=== PATIENT | male | born 1950 | race Caucasian/White ===

== ENCOUNTER 2016-10-20 17:11 | Inpatient (IN) | payer BC, OTHER ==
--- NOTE | ~2016-10-20 | DS ---
Discharge Summary [facility] [address] [facility] [place]. [address] NAME: MALIHA MENA : [birth year] STATUS : DIS IN PAT#: [id number] AGE: 66 ADM/REG DATE : 10/20/16 MR#: [id number] REPORT SERV DATE: 11/08/16 DICTATED BY: ROB RIVERA DATE: 11/07/16 REPORT STATUS : Draft TRANSCRIBED BY: SAIMA DATE: 11/07/16 Data Collection from hospitalization DISCHARGE DIAGNOSES: 1. Inferior ST-elevation myocardial infarction. 2. Chronic obstructive pulmonary disease. 3. Coronary artery disease. 4. Respiratory failure. 5. EtOH withdrawal. 6. Hypertension. 7. Tobacco use. 8. Ventricular fibrillation arrest. CONSULTATIONS: 1. Melinda Garcias MD. 2. Jorden Bhatti M.D. 3. Reva Dc M.D. PROCEDURES PERFORMED: 1. Cardiac catheterization and percutaneous coronary intervention on 10/20/2016. 2. Laceration repair on 10/21/2016. MEDICATIONS: Aspirin 81 mg daily, Lipitor 40 mg at bedtime, Venelex apply to left buttock wound topically twice a day, Plavix 75 mg daily, folic acid 1 mg daily, Lasix 20 mg daily, Humibid DM 600 mg three times a day, Prinivil 5 mg daily, Theragran tablets one tablet daily, Lopressor 12.5 mg twice a day, Protonix 40 mg before breakfast, Florastor one capsule twice a day, thiamine 100 mg daily, Anoro Ellipta one puff via inhaler daily, Tylenol 650 mg every four hours as needed, Mylanta 30 mL every four hours as needed, Habitrol 21 mg topically daily as needed, and nitroglycerin 0.4 mg sublingually every five minutes as needed. CONDITION AT DISCHARGE: Stable. DISPOSITION: The patient was discharged to [facility] on a low-sodium, cardiac diet with activities as instructed. He would follow up with me on 12/04/2016. HOSPITAL COURSE: This is a 66-year-old man who has not been feeling well the week of this admission. He went to a bar to have a couple of beers. After a beer, he began to feel more poorly and develop precordial chest pain. He walked outside of the drinking establishment and had a syncopal event. EMS was called. A field EKG revealed [address]-elevation in the inferior leads with posterior injury pattern noted as well consistent with inferior posterior myocardial infarction. En route, the patient had a ventricular fibrillation arrest requiring CPR for 7 to 10 minutes. He required cardioversion three or four times. He received IV lidocaine. Upon awakening and resuscitation, the patient had purposeful movements. EMS decided to paralyze and sedate him. Secondary to the unstable nature of his condition, he arrived paralyzed and sedated. On arrival, his blood pressure was 80 consistent with cardiogenic shock, declining to 76 systolic. His blood pressure was supported with IV hydration and Levophed. EKG revealed marked ST elevation with posterior Discharge Summary [address] [place]. [address] NAME: MALIHA MENA : [birth year] STATUS : DIS IN PAT#: [id number] AGE: 66 ADM/REG DATE : 10/20/16 MR#: [id number] REPORT SERV DATE: 11/08/16 DICTATED BY: ROB RIVERA DATE: 11/07/16 REPORT STATUS : Draft TRANSCRIBED BY: SAIMA DATE: 11/07/16 reciprocal changes consistent with acute inferior-posterior myocardial infarction. He was admitted to the hospital at this time for further evaluation and treatment. Upon admission, it was felt that he would need to be taken emergently to the cardiac construction laborer for emergent coronary angiography and percutaneous intervention. He would be treated with intensive statin therapy for mixed hyperlipidemia. He was taken to the cardiac construction laborer where he underwent the above-mentioned procedure. He tolerated this well, and there were no complications. He was found to have subtotal thrombotic large dominant mid RCA stenosis and drug-eluting stent was placed. He had mild LAD and circumflex stenosis and iwfs-ca-[id number] LV systolic dysfunction with left ventricular end-diastolic pressure of 22. Left ventricular ejection fraction via left ventriculogram was around 40%. After the left heart catheterization, he was moved to the CCU on Levophed infusion and mechanical ventilation. Of note, he was not responsive. However, he received vecuronium in the construction laborer and a neurologic exam was fairly limited. We have been asked to assist with management of his critical illness as well as management of his mechanical ventilation. SCDs and TEDs were placed for DVT prophylaxis. A PICC line was inserted. The following day, the patient was still sedated and intubated. His lungs were clear. Levophed was being weaned. Plavix and aspirin were continued. We would attempt ventilator weaning later in the day. The patient's family had been located and they were coming to the hospital later that day. The patient had a laceration over the webspace of the fourth and fifth digit of the left hand. He had sustained this from ventricular fibrillation arrest with fall in a parking lot with hand trauma. Laceration repair was performed by Dr. Melinda Garcias. X-rays had shown no obvious fractures. On 10/22/2016, the patient self extubated. Arterial sheath was removed. Lovenox was going to be held for 24 hours. On 10/23/2016, he was seen by Dr. Jorden Bhatti. The patient's wound looked good. He made no new recommendations except to remove the sutures in about 10 days. He was to follow up with Dr. Bhatti as needed. Ativan was being given as needed. Thiamine was continued. He did have withdrawal symptoms. He remained in the ICU. A bedside swallow evaluation was performed. He had overt signs and symptoms of aspiration with thin liquids. He required several swallows to manage his symptoms. Aspiration precautions were in place. He was evaluated by Occupational and Physical Therapy. On 10/24/2016, he was more alert. He denied any pain. His lungs were clear. He was in a sinus rhythm. Mental status was improving. He was changed to oral Protonix. He had no complaints of chest pain. Chest x-ray showed some increased venous congestion. Diuretic was added. He was given a dose of IV Lasix. He was then placed on oral Lasix. On 10/26/2016, he was seen by Dr. Reva Dc. The patient was feeling okay. His dyspnea had improved. He had no chest pain. He was participating with Physical Therapy. We encouraged him to increase his activity with Physical Therapy. Kramer catheter was removed. Over the next couple of days, additional diuresis was provided. We were going to wean O2 as possible. Pulmonary edema was improving. Additional Lasix was given. His dyspnea had improved. He had no edema. Discharge planning was performed. DuoNebs were continued. On 10/30/2016, he denied nausea, vomiting, or chest pain. Antibiotics were discontinued. He said he was feeling good. He was in a sinus rhythm. He had no edema. He was felt to be stable from a cardiovascular standpoint. Discharge instructions were given. Due to his improved and stable condition, he was discharged to [facility] with the above-stated instructions. Discharge Summary [facility] [id number] [place]. [address] NAME: MALIHA MENA : [birth year] STATUS : DIS IN PAT#: [id number] AGE: 66 ADM/REG DATE : 10/20/16 MR#: [id number] REPORT SERV DATE: 11/08/16 DICTATED BY: ROB RIVERA DATE: 11/07/16 REPORT STATUS : Draft TRANSCRIBED BY: SAIMA DATE: 11/07/16 Information collected by: Shanti Senior I submit the above information as my discharge summary. TG/SAIMA Rob Rivera MD / [id number] CC: Patel Stephen Jr., M.D. MD Jorden May M.D. [facility]
--- NOTE | ~2016-10-20 | OP ---
Record Of Operation [facility] [address] [place]. [address] NAME: MALIHA HIGH : [birth year] STATUS : ADM IN [facility]#: [id number] AGE: 67 ADM/REG DATE : 10/20/16 MR#: [id number] REPORT SERV DATE: 10/21/16 DICTATED BY: CR TRAN DATE: 10/21/16 REPORT STATUS : Draft TRANSCRIBED BY: SAIMA DATE: 10/21/16 DATE OF PROCEDURE: 10/21/2016 LACERATION REPAIR REASON: Laceration over the web space of the fourth and fifth digit on the left hand, status post ventricular fibrillation arrest with fall into a parking lot with hand trauma. Under propofol and fentanyl infusion for anesthetic, we performed a three-view radiograph of the left hand, which showed no fracture or foreign body. The hand was prepped and draped in usual sterile fashion. Sterile water and Hibiclens solution was used to perform a jet irrigation of the laceration and four simple interrupted sutures with 5-0 Ethilon were placed with no active bleeding. Subsequently, a sterile dressing was placed overlying the wound, and a small avulsion/skin tear overlying the third and fourth web space was also cleaned with Hibiclens, and a small Steri-Strip dressing was placed. The hand was placed in a wrist immobilizer, and there was satisfactory hemostasis. No significant blood loss during the procedure. Sedation drips were lightened afterwards. The patient did receive 1 gram of Ancef and a tetanus shot prophylactically. PAULO/SAIMA Cr Tran MD / [id number] CC: Patel Stephen Jr., M.D.
--- NOTE | ~2016-10-20 | CN ---
Consultation Report [facility] [address] [place]. [address] NAME: MALIHA HIGH : [birth year] STATUS : ADM IN PAT#: [id number] AGE: 67 ADM/REG DATE : 10/20/16 MR#: [id number] REPORT SERV DATE: 10/20/16 DICTATED BY: CR TRAN DATE: 10/20/16 REPORT STATUS : Draft TRANSCRIBED BY: MODL DATE: 10/20/16 PULMONARY AND CRITICAL CARE MEDICINE CONSULTATION DATE OF CONSULTATION: 10/20/2016 REASON FOR CONSULTATION: Critical care following ST-elevation OK and ventricular fibrillation arrest. HISTORY OF PRESENT ILLNESS: Mr. High is a 67-year-old gentleman who was not feeling well earlier this week, evidently he went to a bar in [facility] to have a couple of beers this evening, and after his first one, began to feel worse with development of precordial chest pain. He walked outside of the bar and apparently dropped to the ground, EMS was called for syncope and EKG in the field revealed [address]-elevation in the inferior leads with posterior injury pattern consistent with an inferior posterior myocardial infarction. He was placed in the ambulance and brought to the hospital, actually developed V-Fib arrest requiring around 10 minutes to CPR and 3 or 4 defibrillations. He was loaded with IV lidocaine. Upon awakening after return of spontaneous circulation, he did have purposeful movements according to the paramedics. He was intubated, sedated, and paralyzed and presented to our emergency department as a STEMI with cardiogenic shock. Initial blood pressure was 76 systolic. He was taken urgently to the labeling strategist by Dr. Stephen as a code STEMI and findings included subtotal thrombotic large dominant mid RCA stenosis and a drug- eluting stent was placed. He also had mild LAD and circumflex stenosis and gdtr-sa-scxyyowe LV systolic dysfunction with LVEDP of 22, LV ejection fraction via LV gram was around 40%. After left heart catheterization, he was moved to the CCU on Levophed infusion at 4 mcg/minute and mechanical ventilation. Of note, he was not responsive, however, had received vecuronium in the labeling strategist, so neurologic exam is fairly limited. We have been asked to assist with management of his critical illness tonight as well as management of his mechanical ventilation. Of note, other than his friends at the bar no other family has been aware of his transfer to our facility, and now the case management is actively working with EMS to attempt to locate his family to let them know of his events today. PAST MEDICAL HISTORY: Evidently he reported to paramedics that he had COPD, however, other history is known as he then developed a cardiac arrest and was unable to provide additional history. SOCIAL HISTORY: He obviously drinks beer of unknown quantities. We are assuming he is a smoker based on his history of COPD, lung hyperinflation on x-ray, and tobacco staining of the fingers. Unknown history of illicit drug use and no further social history is available due to lack of availability of any family or friends. FAMILY HISTORY: Unknown. ALLERGIES: UNKNOWN. Consultation Report [address] [place]. [address] NAME: MALIHA HIGH : [birth year] STATUS : ADM IN [facility]#: [id number] AGE: 67 ADM/REG DATE : 10/20/16 MR#: [id number] REPORT SERV DATE: 10/20/16 DICTATED BY: CR TRAN DATE: 10/20/16 REPORT STATUS : Draft TRANSCRIBED BY: SAIMA DATE: 10/20/16 CURRENT MEDICATIONS: Unknown. REVIEW OF SYSTEMS: Unobtainable due to his intubation and sedation and no family available. PHYSICAL EXAMINATION: VITAL SIGNS: Blood pressure was 82/51, heart rate was 89, respiratory rate was 16 on mechanical ventilation. Afebrile, unable to assess for pain scale. GENERAL: The patient is a male, who is very ill appearing. His marked cyanosis of the neck and ears extending down to the mid chest. HEENT: Head has a couple of abrasions, pupils are not reactive with some clouding of the cornea and conjunctival injection. There is no scleral icterus. Extraocular movements are unable to be assessed. Ears, nose, and mouth are cyanotic. He has an #8 endotracheal tube and an orogastric tube in place draining dark brown material. NECK: Supple and cyanotic. He has symmetric chest rise with hyperinflation and slight barrel chest, diminished breath sounds, and few basilar crackles bilaterally. HEART: S1 and S2 with very sluggish cap refill in distal extremities. His extremities are cool to touch. ABDOMEN: Soft, nontender. He has a midline scar from what appears to be a previous open laparotomy. There are no pulsatile masses in the abdomen. : Kramer catheter is indwelling and draining minimal urine. He has bright red blood projecting from the urethral meatus around the Kramer tubing. EXTREMITIES: Cold to touch, cyanotic. There is xerosis of the skin especially in the lower extremities. His left shoulder has marked crepitus with range of motion and there are multiple small abrasions from his fall. His left hand is markedly discolored and is essentially purple. He has a laceration in the webspace between the ring and pinky finger which is difficult to approximate with irregular borders and some dirt in the wound. There is no active bleeding. There is an abrasion overlying the left knee anteriorly overlying the patella with no active bleeding. LYMPHATIC: Unremarkable. NEUROLOGIC: Essentially unable to be performed secondary to paralysis with vecuronium. PSYCHIATRIC: Unable to assess. DIAGNOSTIC DATA: Diagnostic workup reviewed. CBC is essentially normal with normal hemoglobin, hematocrit, white count and platelet count. His INR is 1.2. Chemistry profile reveals normal GFR at 94 mL/minute, creatinine 0.8, potassium level markedly depressed at 3.3, and glucose of 176. His troponin level was 0.05. An EKG shows STEMI with findings noted above in the HPI. Cardiac cath report was reviewed in the HPI. IMPRESSION: 1. Acute hypoxemic respiratory failure requiring mechanical ventilation. 2. ST-elevation OK with ventricular fibrillation arrest, status post 8 to 10 minutes of ACLS including 3 or 4 defibrillations. Findings of a subtotal thrombotic large dominant mid RCA stenosis, status post PCI per Dr. Stephen with approximately 40% left ventricular ejection fraction and LVEDP of around 25 mmHg. Consultation Report [address] [place]. [address] NAME: MALIHA HIGH : [birth year] STATUS : ADM IN [facility]#: [id number] AGE: 67 ADM/REG DATE : 10/20/16 MR#: [id number] REPORT SERV DATE: 10/20/16 DICTATED BY: CR TRAN DATE: 10/20/16 REPORT STATUS : Draft TRANSCRIBED BY: SAIMA DATE: 10/20/16 3. History of chronic obstructive pulmonary disease. 4. Suspected traumatic injuries to the left shoulder and certainly to the left hand including open laceration, unknown tetanus shot status, without active bleeding. 5. History of alcohol and tobacco abuse. 6. Presumed remote history of ex-lap based on finding of midline abdominal incision. 7. Hypokalemia on arrival. 8. Hyperglycemia in the setting of critical illness. PLAN: Mr. High has already undergone left heart catheterization and is on Levophed for hemodynamic support. A PICC line has been placed, and we are transfusing the arterial sheath for invasive hemodynamic monitoring. We will continue with post PCI protocol per Dr. Stephen, continue long protective mechanical ventilation strategy, and we will obtain radiographs of his hand and shoulder and begin the process of trying to locate his loved ones. We will trend another set of labs for electrolyte replacement needs in light of his hypokalemia, and closely monitor his urine output and renal function. We will need to perform a surface echo tomorrow to reassess left ventricular function, and he will need full neurologic evaluation once paralytics is worn off in light of his prolonged downtime in the field. He has no records available in either [facility] or [facility] on my personal review. We are attempting to get his wallet, cell phone, which had been sent to the safe and security department for investigation and attempts to locate more information about his medical history as well as locate his family. He is a full code at this point. SCDs and BUCK's for DVT prophylaxis. Stress ulcer prophylaxis. PPI while on the ventilator. We will hold off on starting enteral nutrition until tomorrow. Further adjustments will be made as clinically warranted. This case was discussed with Dr. Stephen as well as the bedside nurse in the CCU. Approximately 71 minute critical care time, uninterrupted at the bedside, assessing and stabilizing Mr. High this evening. We appreciate the opportunity for consultation, and I will follow along with you. PAULO/SAIMA Cr Tran MD / [id number] CC: Patel Stephen Jr., M.D.
--- NOTE | ~2016-10-20 | HP ---
History And Physical [facility] [id number] [place]. [address] NAME: MALIHA HIGH : [birth year] STATUS : ADM IN [facility]#: [id number] AGE: 67 ADM/REG DATE : 10/20/16 MR#: [id number] REPORT SERV DATE: 10/20/16 DICTATED BY: ASAEL STEPHEN JR. DATE: 10/20/16 REPORT STATUS : Draft TRANSCRIBED BY: SAIMA DATE: 10/20/16 DATE OF ADMISSION: 10/20/2016 CHIEF COMPLAINT: Chest pain, ST-elevation AR and VFib arrest. HISTORY OF PRESENT ILLNESS: Maliha High is a 67-year-old white male, who told his friends in EMS that he had not been feeling well this week. He went to a bar to have a couple of beers. After a beer, he started to feel more poorly and developed precordial chest pain and then walked outside of drinking establishment and had a syncopal event. EMS was called. Field EKG revealed [address] elevation inferior leads with posterior injury pattern noted as well, consistent with an inferior posterior AR. En route, the patient had a VFib arrest requiring CPR for 7-10 minutes. He required cardioversions 3 or 4 times. He received IV lidocaine. Upon awakening, in resuscitation the patient had purposeful movements. EMS decided to paralyze and sedate him. Secondary to unstable nature of his condition, he arrived paralyzed and sedated. On arrival, his blood pressure was 80 consistent with cardiogenic shock declining to 76 systolic. His blood pressure was supported with IV hydration and Levophed. PAST MEDICAL HISTORY: He gave a diagnosis of COPD. He denied prior vascular events to the EMS. Other history is unknown secondary to his arrival state and no family being available. ALLERGIES: UNKNOWN. CURRENT MEDICATIONS: Unknown. SOCIAL HISTORY: He drinks alcohol of unknown quantities. He is a presumed smoker/ex-smoker with a history of COPD. Other is unknown secondary to clinical status and lack of secondary family. REVIEW OF SYSTEMS: Unobtainable secondary to clinical status. PHYSICAL EXAMINATION: VITAL SIGNS: Blood pressure was 78/48, heart rate 85, respirations 16. GENERAL: Intubated. Older than stated age male, who appeared underweight. HEENT: Anicteric. No scleral injection. No oral lesions. NECK: No JVD. Supple. No bruits. LUNGS: Hyperexpanded, but clear. CARDIAC: Regular rate and rhythm with distant heart sounds. ABDOMEN: Soft, nontender. Normoactive bowel sounds. No hepatosplenomegaly. EXTREMITIES: No clubbing, cyanosis or edema. SKIN: No visible rashes. NEURO/PSY: Normal affect, alert and oriented x3. EKG: EKG revealed marked ST elevation with posterior reciprocal changes consistent with acute inferior posterior AR. History And Physical [address] [address] NAME: MALIHA HIGH : [birth year] STATUS : ADM IN PAT#: [id number] AGE: 67 ADM/REG DATE : 10/20/16 MR#: [id number] REPORT SERV DATE: 10/20/16 DICTATED BY: ASAEL STEPHEN JR. DATE: 10/20/16 REPORT STATUS : Draft TRANSCRIBED BY: SAIMA DATE: 10/20/16 MEDICAL DECISION MAKIN. Based upon the clinical state and unstable status, the patient is taken emergently to the cardiac catheterization laboratory for emergent coronary angiography and percutaneous intervention. 2. Pulmonary status. We will have Critical Care assist us in ventilator and COPD management. 3. Risk factor modification counseling will be given. 4. Mixed hyperlipidemia. We will treat with intensive statin therapy. 5. Cardiogenic shock. The patient will be supported with PCI and inotropes as needed. EDGAR/SAIMA Asael Stephen Jr., M.D. / [id number] CC: Asael Stephen Jr., M.D.
[2016-10-20 18:38] LABS: BASOPHILS 0.2 %; BASOPHILS ABSOLUTE 0.02 10/3/uL (0.0-0.16); EOSINOPHILS 1.3 %; EOSINOPHILS ABSOLUTE 0.12 10/3/uL (0.0-0.53); HEMATOCRIT 48.4 % (40.0-51.0); HEMOGLOBIN 16.3 g/dL (13.6-17.8); IMMATURE GRANULOCYTES 0.9 %; IMMATURE GRANULOCYTES ABSOLUTE 0.08 10/3/uL (0.0-0.11); LYMPHOCYTES 27.7 %; LYMPHOCYTES ABSOLUTE 2.57 10/3/uL (0.67-4.30); MEAN CORPUS HGB CONC 33.7 g/dL (32.0-36.0); MEAN CORPUSCULAR HEMOGLOB 30.8 pg (26.0-34.0); MEAN CORPUSCULAR VOLUME 91.3 fL (80-100); MEAN PLATELET VOLUME 12.1 fL (9.2-13.0); MONOCYTES 7.4 %; MONOCYTES ABSOLUTE 0.69 10/3/uL (0.21-1.20); NEUTROPHILS 62.5 %; PLATELET COUNT 151 10/3/uL (150-400); RBC DISTRIBUTION WIDTH 13.2 % (12.0-16.0); WHITE BLOOD CELLS 9.3 10/3/uL (4.5-10.5)
[2016-10-20 18:39] LABS: MANUAL DIFF NO %
[2016-10-20 18:45] LABS: INTERNATIONAL NORMAL RATI 1.2 UNITS (-)
[2016-10-20 18:47] LABS: PARTIAL THROMBO TIME 109.8 SEC (22.5-37.2)
[2016-10-20 18:49] LABS: CREATININE 0.8 MG/DL (0.70-1.30)
[2016-10-20 18:55] LABS: BUN (BLOOD UREA NITROGEN) 35 MG/DL (6-23); CALCIUM, SERUM 7.4 MG/DL (8.5-10.4); CHLORIDE, SERUM 103 MMOL/L (96-112); CO2 (CARBON DIOXIDE) 23 MMOL/L (24-34); CREATININE 1.07 MG/DL (0.70-1.30); GFR AFRICAN AMERICAN 84 ML/MIN (>=60); GFR NON AFRICAN AMERICAN 72 ML/MIN (>=60); GLUCOSE, SERUM 191 MG/DL (60-99); POTASSIUM, SERUM 3.7 MMOL/L (3.5-5.3); SODIUM, SERUM 139 MMOL/L (135-148)
[2016-10-20 18:56] LABS: CHEST PAIN PROFILE TAT 0 Hrs 23 Mins; TROPONIN I 0.05 NG/ML (<0.05)
[2016-10-20 21:12] LABS: CPK 88 U/L (0-200)
[2016-10-20 21:15] LABS: CK-MB 2.8 NG/ML
[2016-10-21 03:53] LABS: BE (BASE EXCESS) -1.3 MEQ/L (0 +/- 2.5); CARBOXYHEMOGLOBIN 0.6 % (0-3); HCO3 (ACTUAL BICARBONATE) 24.7 MEQ/L (23-27); HEMOBLOGIN CONTENT 18.1 G/DL (14-18); INSTRUMENT SERIAL # 35151; METHEMOGLOBIN 0.6 % (0-3); MODE CMV; O2 CONTENT 24.3 VOL% (18-24); OPERATOR ID 13861; PCO2 (CO2 TENSION) 46 MMHG (35-45); PO2 (O2 TENSION) 92 MMHG (79-93); SAMPLE Arterial; TIDAL VOLUME 500 ML; pH 7.35 (7.37-7.43)
[2016-10-21 07:18] LABS: BASOPHILS 0.2 %; BASOPHILS ABSOLUTE 0.02 10/3/uL (0.0-0.16); EOSINOPHILS 0.2 %; EOSINOPHILS ABSOLUTE 0.03 10/3/uL (0.0-0.53); HEMATOCRIT 50.9 % (40.0-51.0); HEMOGLOBIN 17.4 g/dL (13.6-17.8); IMMATURE GRANULOCYTES 0.2 %; IMMATURE GRANULOCYTES ABSOLUTE 0.03 10/3/uL (0.0-0.11); LYMPHOCYTES 12.8 %; LYMPHOCYTES ABSOLUTE 1.58 10/3/uL (0.67-4.30); MEAN CORPUS HGB CONC 34.2 g/dL (32.0-36.0); MEAN CORPUSCULAR HEMOGLOB 31.4 pg (26.0-34.0); MEAN CORPUSCULAR VOLUME 91.9 fL (80-100); MEAN PLATELET VOLUME 11.5 fL (9.2-13.0); MONOCYTES 10.7 %; MONOCYTES ABSOLUTE 1.32 10/3/uL (0.21-1.20); NEUTROPHILS 75.9 %; NEUTROPHILS ABSOLUTE 9.32 10/3/uL (2.02-8.40); RBC DISTRIBUTION WIDTH 13.3 % (12.0-16.0); RED CELL COUNT 5.54 10/6/uL (4.7-6.1); WHITE BLOOD CELLS 12.3 10/3/uL (4.5-10.5)
[2016-10-21 07:19] LABS: MANUAL DIFF NO %; PLATELET COUNT 211 10/3/uL (150-400)
[2016-10-21 07:38] LABS: CALCIUM, SERUM 8.2 MG/DL (8.5-10.4); CHLORIDE, SERUM 104 MMOL/L (96-112); CHOL/HDL RATIO(NOT ORDER) 2.9 (0-5); CHOLESTEROL 118 MG/DL (< 200); CK-MB 16.3 NG/ML; CO2 (CARBON DIOXIDE) 26 MMOL/L (24-34); CPK 234 U/L (0-200); CREATININE 0.89 MG/DL (0.70-1.30); GFR AFRICAN AMERICAN 104 ML/MIN (>=60); GFR NON AFRICAN AMERICAN 90 ML/MIN (>=60); GLUCOSE, SERUM 159 MG/DL (60-99); HDL CHOLESTEROL 41 MG/DL (> 39); LDL CHOLESTEROL 56 MG/DL (< 130); NON-HDL CHOLESTEROL 77 MG/DL (< 160); SODIUM, SERUM 141 MMOL/L (135-148); TRIGLYCERIDE 109 MG/DL (< 150)
[2016-10-21 07:39] LABS: BUN (BLOOD UREA NITROGEN) 31 MG/DL (6-23); POTASSIUM, SERUM 4.5 MMOL/L (3.5-5.3); TROPONIN I 3.81 NG/ML (<0.05)
[2016-10-21 10:38] LABS: PHOSPHORUS, SERUM 2.5 MG/DL (2.5-4.5)
[2016-10-21 13:18] LABS: CK-MB 12.5 NG/ML; CKMB INDEX (NOT ORD) 5.4
[2016-10-21] MEDS ORDERED: SYMBICORT 160/41 INH INH (14:24)
[2016-10-21] MEDS ORDERED: PROAIR HFA INH (14:24)
[2016-10-21] MEDS ORDERED: FENESIN IR400 MG PO (14:24)
[2016-10-21] MEDS ORDERED: NIZORALCRM TOP (14:25)
[2016-10-21] MEDS ORDERED: ZESTORETIC1 TAB PO (14:25)
[2016-10-21] MEDS ORDERED: KETOCONAZOLE SHAMPOO TOP (14:25)
[2016-10-21 21:19] LABS: CKMB INDEX (NOT ORD) 3.5
[2016-10-22 03:45] LABS: BASOPHILS 0.1 %; BASOPHILS ABSOLUTE 0.01 10/3/uL (0.0-0.16); EOSINOPHILS 0 %; HEMOGLOBIN 17.4 g/dL (13.6-17.8); IMMATURE GRANULOCYTES 0.4 %; IMMATURE GRANULOCYTES ABSOLUTE 0.05 10/3/uL (0.0-0.11); LYMPHOCYTES 7.3 %; LYMPHOCYTES ABSOLUTE 0.86 10/3/uL (0.67-4.30); MEAN CORPUS HGB CONC 34.1 g/dL (32.0-36.0); MEAN CORPUSCULAR HEMOGLOB 31.2 pg (26.0-34.0); MEAN CORPUSCULAR VOLUME 91.6 fL (80-100); MEAN PLATELET VOLUME 11.7 fL (9.2-13.0); MONOCYTES 7.9 %; MONOCYTES ABSOLUTE 0.93 10/3/uL (0.21-1.20); NEUTROPHILS 84.3 %; NEUTROPHILS ABSOLUTE 9.93 10/3/uL (2.02-8.40); PLATELET COUNT 198 10/3/uL (150-400); RBC DISTRIBUTION WIDTH 13.1 % (12.0-16.0); RED CELL COUNT 5.57 10/6/uL (4.7-6.1); WHITE BLOOD CELLS 11.8 10/3/uL (4.5-10.5)
[2016-10-22 03:50] LABS: MANUAL DIFF NO %
[2016-10-22 03:58] LABS: ALBUMIN 2.3 G/DL (3.5-5.0); CALCIUM, SERUM 8.6 MG/DL (8.5-10.4); CHLORIDE, SERUM 103 MMOL/L (96-112); CO2 (CARBON DIOXIDE) 27 MMOL/L (24-34); CREATININE 1.02 MG/DL (0.70-1.30); GFR AFRICAN AMERICAN 90 ML/MIN (>=60); GFR NON AFRICAN AMERICAN 77 ML/MIN (>=60); PHOSPHORUS, SERUM 2.2 MG/DL (2.5-4.5); POTASSIUM, SERUM 4.4 MMOL/L (3.5-5.3); SODIUM, SERUM 141 MMOL/L (135-148)
[2016-10-22 04:01] LABS: BUN (BLOOD UREA NITROGEN) 27 MG/DL (6-23); GLUCOSE, SERUM 126 MG/DL (60-99)
[2016-10-22 10:22] LABS: PROCALCITONIN 0.28 ng/mL (<0.5)
[2016-10-23 05:58] LABS: CALCIUM IONIZED 4.7 MG/DL (3.80-4.80)
[2016-10-23 06:00] LABS: BASOPHILS 0.1 %; BASOPHILS ABSOLUTE 0.01 10/3/uL (0.0-0.16); IMMATURE GRANULOCYTES 0.4 %; IMMATURE GRANULOCYTES ABSOLUTE 0.04 10/3/uL (0.0-0.11); LYMPHOCYTES 13.4 %; LYMPHOCYTES ABSOLUTE 1.35 10/3/uL (0.67-4.30); MEAN CORPUS HGB CONC 33.6 g/dL (32.0-36.0); MEAN CORPUSCULAR HEMOGLOB 30.4 pg (26.0-34.0); MEAN CORPUSCULAR VOLUME 90.3 fL (80-100); MEAN PLATELET VOLUME 11.7 fL (9.2-13.0); MONOCYTES 9.1 %; MONOCYTES ABSOLUTE 0.92 10/3/uL (0.21-1.20); NEUTROPHILS ABSOLUTE 7.69 10/3/uL (2.02-8.40); PLATELET COUNT 225 10/3/uL (150-400); RBC DISTRIBUTION WIDTH 13.4 % (12.0-16.0); RED CELL COUNT 4.94 10/6/uL (4.7-6.1); WHITE BLOOD CELLS 10.1 10/3/uL (4.5-10.5)
[2016-10-23 06:02] LABS: HEMATOCRIT 44.6 % (40.0-51.0); MANUAL DIFF NO %
[2016-10-23 06:17] LABS: ALBUMIN 2.1 G/DL (3.5-5.0); ALKALINE PHOSPHATASE 79 U/L (45-117); DIRECT BILIRUBIN 0.4 MG/DL (0.0-0.4); INDIRECT BILIRUBIN(NOT ORDER) 0.8 MG/DL (0.1-0.9); PHOSPHORUS, SERUM 2.5 MG/DL (2.5-4.5); SGOT(AST) 31 U/L (5-40); SGPT(ALT) 34 U/L (5-65); TOTAL BILIRUBIN 1.2 MG/DL (0-1.2); TOTAL PROTEIN 6.3 G/DL (6.0-8.5)
[2016-10-23 07:40] LABS: BUN (BLOOD UREA NITROGEN) 26 MG/DL (6-23); CHLORIDE, SERUM 104 MMOL/L (96-112); CO2 (CARBON DIOXIDE) 25 MMOL/L (24-34); CREATININE 0.86 MG/DL (0.70-1.30); GFR AFRICAN AMERICAN 106 ML/MIN (>=60); GFR NON AFRICAN AMERICAN 92 ML/MIN (>=60); SODIUM, SERUM 139 MMOL/L (135-148)
[2016-10-23 07:41] LABS: GLUCOSE, SERUM 88 MG/DL (60-99)
[2016-10-24 05:24] LABS: CALCIUM, SERUM 8.5 MG/DL (8.5-10.4); CHLORIDE, SERUM 108 MMOL/L (96-112); CO2 (CARBON DIOXIDE) 23 MMOL/L (24-34); GFR AFRICAN AMERICAN 116 ML/MIN (>=60); GFR NON AFRICAN AMERICAN 100 ML/MIN (>=60); GLUCOSE, SERUM 85 MG/DL (60-99); PHOSPHORUS, SERUM 2.8 MG/DL (2.5-4.5); POTASSIUM, SERUM 4.1 MMOL/L (3.5-5.3); SODIUM, SERUM 142 MMOL/L (135-148)
[2016-10-24 05:28] LABS: BUN (BLOOD UREA NITROGEN) 22 MG/DL (6-23)
[2016-10-24 05:55] LABS: PROCALCITONIN 0.31 ng/mL (<0.5)
[2016-10-25 04:09] LABS: BASOPHILS 0.1 %; BASOPHILS ABSOLUTE 0.01 10/3/uL (0.0-0.16); EOSINOPHILS 1.6 %; EOSINOPHILS ABSOLUTE 0.15 10/3/uL (0.0-0.53); HEMATOCRIT 48.5 % (40.0-51.0); HEMOGLOBIN 16.1 g/dL (13.6-17.8); IMMATURE GRANULOCYTES 0.3 %; IMMATURE GRANULOCYTES ABSOLUTE 0.03 10/3/uL (0.0-0.11); LYMPHOCYTES 10.3 %; LYMPHOCYTES ABSOLUTE 0.98 10/3/uL (0.67-4.30); MEAN CORPUS HGB CONC 33.2 g/dL (32.0-36.0); MEAN CORPUSCULAR HEMOGLOB 30.4 pg (26.0-34.0); MEAN CORPUSCULAR VOLUME 91.5 fL (80-100); MEAN PLATELET VOLUME 11.6 fL (9.2-13.0); MONOCYTES 9.7 %; MONOCYTES ABSOLUTE 0.92 10/3/uL (0.21-1.20); NEUTROPHILS ABSOLUTE 7.43 10/3/uL (2.02-8.40); PLATELET COUNT 276 10/3/uL (150-400); RBC DISTRIBUTION WIDTH 13.3 % (12.0-16.0); WHITE BLOOD CELLS 9.5 10/3/uL (4.5-10.5)
[2016-10-25 04:13] LABS: MANUAL DIFF NO %
[2016-10-25 04:21] LABS: BUN (BLOOD UREA NITROGEN) 20 MG/DL (6-23); CALCIUM, SERUM 8.6 MG/DL (8.5-10.4); CHLORIDE, SERUM 107 MMOL/L (96-112); CO2 (CARBON DIOXIDE) 25 MMOL/L (24-34); CREATININE 0.66 MG/DL (0.70-1.30); GFR AFRICAN AMERICAN 118 ML/MIN (>=60); GFR NON AFRICAN AMERICAN 102 ML/MIN (>=60); GLUCOSE, SERUM 71 MG/DL (60-99); POTASSIUM, SERUM 3.9 MMOL/L (3.5-5.3); SODIUM, SERUM 140 MMOL/L (135-148)
[2016-10-26 04:30] LABS: BUN (BLOOD UREA NITROGEN) 21 MG/DL (6-23); CALCIUM, SERUM 8.5 MG/DL (8.5-10.4); CHLORIDE, SERUM 106 MMOL/L (96-112); CO2 (CARBON DIOXIDE) 29 MMOL/L (24-34); CREATININE 0.73 MG/DL (0.70-1.30); GFR AFRICAN AMERICAN 114 ML/MIN (>=60); GFR NON AFRICAN AMERICAN 98 ML/MIN (>=60); GLUCOSE, SERUM 82 MG/DL (60-99); PHOSPHORUS, SERUM 2.3 MG/DL (2.5-4.5); POTASSIUM, SERUM 3.6 MMOL/L (3.5-5.3); SODIUM, SERUM 143 MMOL/L (135-148)
[2016-10-26 15:05] LABS: WBC (NOT ORDERED) (RFLEX) 0 (0-5)
[2016-10-26 15:19] LABS: ASCORBIC ACID (UR NOT ORDER) NEG (NEG); BILIRUBIN, URINE NEGATIVE (NEG); KETONE, URINE NEGATIVE (NEG); LEUKOCYTE ESTERASE(NOT OR NEG (NEG)
[2016-10-27 06:21] LABS: BASOPHILS 0.2 %; BASOPHILS ABSOLUTE 0.02 10/3/uL (0.0-0.16); EOSINOPHILS 2.2 %; EOSINOPHILS ABSOLUTE 0.27 10/3/uL (0.0-0.53); HEMOGLOBIN 14.5 g/dL (13.6-17.8); IMMATURE GRANULOCYTES 0.3 %; IMMATURE GRANULOCYTES ABSOLUTE 0.04 10/3/uL (0.0-0.11); LYMPHOCYTES 12.9 %; LYMPHOCYTES ABSOLUTE 1.59 10/3/uL (0.67-4.30); MEAN CORPUS HGB CONC 33.7 g/dL (32.0-36.0); MEAN CORPUSCULAR HEMOGLOB 30.3 pg (26.0-34.0); MEAN CORPUSCULAR VOLUME 89.8 fL (80-100); MEAN PLATELET VOLUME 11.3 fL (9.2-13.0); MONOCYTES 7.1 %; MONOCYTES ABSOLUTE 0.87 10/3/uL (0.21-1.20); NEUTROPHILS 77.3 %; NEUTROPHILS ABSOLUTE 9.53 10/3/uL (2.02-8.40); PLATELET COUNT 307 10/3/uL (150-400); RBC DISTRIBUTION WIDTH 13.5 % (12.0-16.0); RED CELL COUNT 4.79 10/6/uL (4.7-6.1); WHITE BLOOD CELLS 12.3 10/3/uL (4.5-10.5)
[2016-10-27 06:31] LABS: MANUAL DIFF NO %
[2016-10-27 06:43] LABS: BUN (BLOOD UREA NITROGEN) 18 MG/DL (6-23); CHLORIDE, SERUM 107 MMOL/L (96-112); CO2 (CARBON DIOXIDE) 26 MMOL/L (24-34); CREATININE 0.68 MG/DL (0.70-1.30); GFR AFRICAN AMERICAN 117 ML/MIN (>=60); GFR NON AFRICAN AMERICAN 101 ML/MIN (>=60); GLUCOSE, SERUM 80 MG/DL (60-99); PHOSPHORUS, SERUM 1.8 MG/DL (2.5-4.5); POTASSIUM, SERUM 3.7 MMOL/L (3.5-5.3); SODIUM, SERUM 142 MMOL/L (135-148)
[2016-10-28 05:16] LABS: BASOPHILS 0.2 %; BASOPHILS ABSOLUTE 0.02 10/3/uL (0.0-0.16); EOSINOPHILS 2.2 %; EOSINOPHILS ABSOLUTE 0.27 10/3/uL (0.0-0.53); HEMOGLOBIN 14.9 g/dL (13.6-17.8); IMMATURE GRANULOCYTES 0.2 %; IMMATURE GRANULOCYTES ABSOLUTE 0.02 10/3/uL (0.0-0.11); LYMPHOCYTES 13.5 %; LYMPHOCYTES ABSOLUTE 1.68 10/3/uL (0.67-4.30); MEAN CORPUS HGB CONC 33.9 g/dL (32.0-36.0); MEAN CORPUSCULAR HEMOGLOB 30.5 pg (26.0-34.0); MEAN PLATELET VOLUME 10.9 fL (9.2-13.0); MONOCYTES 8.3 %; MONOCYTES ABSOLUTE 1.03 10/3/uL (0.21-1.20); NEUTROPHILS 75.6 %; NEUTROPHILS ABSOLUTE 9.44 10/3/uL (2.02-8.40); PLATELET COUNT 310 10/3/uL (150-400); RBC DISTRIBUTION WIDTH 13.3 % (12.0-16.0); RED CELL COUNT 4.89 10/6/uL (4.7-6.1); WHITE BLOOD CELLS 12.5 10/3/uL (4.5-10.5)
[2016-10-28 05:18] LABS: MANUAL DIFF NO %
[2016-10-28 05:35] LABS: BUN (BLOOD UREA NITROGEN) 18 MG/DL (6-23); CALCIUM, SERUM 8.5 MG/DL (8.5-10.4); CHLORIDE, SERUM 106 MMOL/L (96-112); CO2 (CARBON DIOXIDE) 27 MMOL/L (24-34); CREATININE 0.69 MG/DL (0.70-1.30); GFR AFRICAN AMERICAN 116 ML/MIN (>=60); GFR NON AFRICAN AMERICAN 100 ML/MIN (>=60); GLUCOSE, SERUM 92 MG/DL (60-99); POTASSIUM, SERUM 3.7 MMOL/L (3.5-5.3); SODIUM, SERUM 142 MMOL/L (135-148)
[2016-10-29 06:20] LABS: BASOPHILS 0.3 %; BASOPHILS ABSOLUTE 0.03 10/3/uL (0.0-0.16); EOSINOPHILS ABSOLUTE 0.24 10/3/uL (0.0-0.53); HEMATOCRIT 47.8 % (40.0-51.0); HEMOGLOBIN 16.2 g/dL (13.6-17.8); IMMATURE GRANULOCYTES 0.3 %; IMMATURE GRANULOCYTES ABSOLUTE 0.04 10/3/uL (0.0-0.11); LYMPHOCYTES 13.9 %; LYMPHOCYTES ABSOLUTE 1.65 10/3/uL (0.67-4.30); MANUAL DIFF NO %; MEAN CORPUS HGB CONC 33.9 g/dL (32.0-36.0); MEAN CORPUSCULAR HEMOGLOB 30.6 pg (26.0-34.0); MEAN CORPUSCULAR VOLUME 90.4 fL (80-100); MEAN PLATELET VOLUME 11.5 fL (9.2-13.0); MONOCYTES 9.2 %; MONOCYTES ABSOLUTE 1.09 10/3/uL (0.21-1.20); NEUTROPHILS 74.3 %; NEUTROPHILS ABSOLUTE 8.78 10/3/uL (2.02-8.40); PLATELET COUNT 376 10/3/uL (150-400); RED CELL COUNT 5.29 10/6/uL (4.7-6.1); WHITE BLOOD CELLS 11.8 10/3/uL (4.5-10.5)
[2016-10-29 06:42] LABS: CALCIUM, SERUM 8.8 MG/DL (8.5-10.4); CHLORIDE, SERUM 99 MMOL/L (96-112); CO2 (CARBON DIOXIDE) 28 MMOL/L (24-34); CREATININE 0.78 MG/DL (0.70-1.30); GFR AFRICAN AMERICAN 111 ML/MIN (>=60); GFR NON AFRICAN AMERICAN 95 ML/MIN (>=60); GLUCOSE, SERUM 96 MG/DL (60-99); POTASSIUM, SERUM 3.6 MMOL/L (3.5-5.3); SODIUM, SERUM 138 MMOL/L (135-148)
[2016-10-29 06:43] LABS: BUN (BLOOD UREA NITROGEN) 22 MG/DL (6-23)
== END 2016-10-30 16:26 | DRG 246 ==
LOC: SSU2 17:11 → CCU 19:22 → 5NO 10-25 21:51
PROVIDERS: Internal Medicine; Internal Medicine Cardiovascular Disease; Internal Medicine Critical Care Medicine
PROC: 027034Z Dilation of Coronary Artery, One Artery with Drug-eluting Intraluminal Device, Percutaneous Approach (ICD-10-PCS; principal; 2016-10-20)
PROC: 5A1945Z Respiratory Ventilation, 24-96 Consecutive Hours (ICD-10-PCS; 2016-10-20)
PROC: 4A023N7 Measurement of Cardiac Sampling and Pressure, Left Heart, Percutaneous Approach (ICD-10-PCS; 2016-10-20)
PROC: 0BH17EZ Insertion of Endotracheal Airway into Trachea, Via Natural or Artificial Opening (ICD-10-PCS; 2016-10-20)
PROC: B2151ZZ Fluoroscopy of Left Heart using Low Osmolar Contrast (ICD-10-PCS; 2016-10-20)
PROC: B2111ZZ Fluoroscopy of Multiple Coronary Arteries using Low Osmolar Contrast (ICD-10-PCS; 2016-10-20)
PROC: 02HV33Z Insertion of Infusion Device into Superior Vena Cava, Percutaneous Approach (ICD-10-PCS; 2016-10-20)
PROC: 4A02X4A Measurement of Cardiac Electrical Activity, Guidance, External Approach (ICD-10-PCS; 2016-10-20)
PROC: 0HQGXZZ Repair Left Hand Skin, External Approach (ICD-10-PCS; 2016-10-21)
DX: I21.11 ST elevation (STEMI) myocardial infarction involving right coronary artery (principal); R57.0 Cardiogenic shock; I49.01 Ventricular fibrillation; J96.01 Acute respiratory failure with hypoxia; F10.239 Alcohol dependence with withdrawal, unspecified; I25.10 Atherosclerotic heart disease of native coronary artery without angina pectoris; E78.2 Mixed hyperlipidemia; J44.9 Chronic obstructive pulmonary disease, unspecified; S49.82XA Other specified injuries of left shoulder and upper arm, initial encounter; W18.30XA Fall on same level, unspecified, initial encounter; S61.412A Laceration without foreign body of left hand, initial encounter; E87.6 Hypokalemia; R73.9 Hyperglycemia, unspecified; Y92.89 Other specified places as the place of occurrence of the external cause; Z98.890 Other specified postprocedural states
CPT/HCPCS: 31720; 36569; 71010; 72170; 73030-LT; 73130-LT; 74000; 80048; 80061; 80069; 80076; 81001; 82140; 82330; 82550; 82553; 82565; 82805; 83036; 83735; 84100; 84132; 84145; 84295; 84484; 85025; 85610; 85730; 87040; 87070; 87205; 87493; 87493-59; 87641; 90714; 92610-GN; 93005; 93306; 93458; 94002; 94003; 94640; 94660; 94770; 97110-GP; 97116-GP; 97162-GP; 97166-GO; 97530-GP; A9270-GY; C1725; C1751; C1769; C1874; C1887; C1894; C9113; C9606; J0360; J0583; J0690; J1940; J2060; J2250; J2543; J3010; J3411; Q9967